=== PATIENT | male | born 1985 | race Two or more races ===

== ENCOUNTER → 2016-07-02 | Outpatient (CLI) | payer OTHER ==
--- NOTE | 2016-07-02 12:16 | DX ---
3 Views Left Foot: Weight-bearing Reason for examination: Pain at the base of the fourth metatarsal with associated swelling and ecchym osis. Findings: A fracture or other acute osseous abnormality is not identified. The bone alignment is norm al. Mild soft tissue swelling is noted. Impression: Negative for fracture.
== END ==
LOC: BMCIMAGING 10:54
PROVIDERS: ATTEND Podiatrist Foot & Ankle Surgery
DX: M77.42 Metatarsalgia, left foot (principal)

== ENCOUNTER → 2017-03-19 | Outpatient (CLI) | payer OTHER | LOC: BMCIMAGING 13:11 | PROVIDERS: ATTEND Orthopaedic Surgery Hand Surgery | DX: M15.4 Erosive (osteo)arthritis (principal) ==

== ENCOUNTER → 2017-10-30 | Outpatient (CLI) | payer OTHER | LOC: BMCIMAGING 08:43 | PROVIDERS: ATTEND Internal Medicine | DX: R16.0 Hepatomegaly, not elsewhere classified (principal); K76.0 Fatty (change of) liver, not elsewhere classified ==

== ENCOUNTER → 2018-11-08 | Outpatient (CLI) | payer OTHER | LOC: FCPNEURO 20:00 ==